=== PATIENT | female | born 1985 | race Caucasian/White ===

== ENCOUNTER 2018-02-18 09:36 | Outpatient (CLI) | payer BC ==
[~2018-02-18] VITALS: Ht 167.6 cm; Wt 134.1 kg
[2018-02-18 11:29] LABS: BASOPHILS 0.2 % (0-2); EOSINOPHILS 1.1 % (0-7); HEMOGLOBIN 10.7 g/dL (12-16); IMMATURE GRANULOCYTES 0.6 % (0-5); LYMPHOCYTES 16.5 % (15-50); MCH 22.9 pg (26.0-34.0); MCHC 31.5 g/dL (31.0-37.0); MCV 72.6 fL (80.0-100.0); MONOCYTES 4.9 % (2-11); NEUTROPHILS 76.7 % (40-80); PLATELET COUNT 230 10x3/uL (130-400); RBC 4.68 10x6/uL (4.00-5.40); RDW 19.8 % (11.5-14.5); WBC 13.1 10x3/uL (4.8-10.8)
[2018-02-18 12:06] LABS: ALBUMIN 2.5 g/dL (3.4-5.0); ALKALINE PHOSPHATASE 90 U/L (46-116); ALT (SGPT) 23 U/L (10-68); BILIRUBIN - DIRECT 0.06 mg/dL (0.00-0.30); BILIRUBIN - INDIRECT 0.07 mg/dL (0.00-1.00); BILIRUBIN - TOTAL 0.13 mg/dL (0.2-1.3); CALC OSMOLALITY 272 mosm/kg (275-300); CALCIUM 9.5 mg/dL (8.5-10.1); CARBON DIOXIDE 22.5 mmol/L (21.0-32.0); CHLORIDE - SERUM 103 mmol/L (98-107); CREATININE - SERUM 0.7 mg/dL (0.6-1.3); GLUCOSE 94 mg/dL (74-106); POTASSIUM - SERUM 4.2 mmol/L (3.5-5.1); PROTEIN - SERUM 6.9 g/dL (6.4-8.2); SODIUM 137 mmol/L (136-145); UREA NITROGEN 9 mg/dL (7-18); URIC ACID 6.6 mg/dL (2.6-7.2); eGFR NON AFRICAN AMERICAN > 90 mL/min (90-120)
[2018-02-18 14:49] VITALS: BP 117/58; Ht 167.6 cm; Wt 134.1 kg
[2018-02-18] MEDS ORDERED: IBUPROFEN600 MG PO (16:15)
[2018-02-18] MEDS ORDERED: HYDROCODON-ACE1 EAC7 PO (16:15)
[2018-02-19 06:15] LABS: RAPID PLASMA REAGIN Non Reactive (Non Reactive)
[2018-02-19 22:39] LABS: PROTEIN - URINE 12.9 mg/dL (0.0-11.9)
== END 2018-02-18 17:10 | disposition home or self-care (01) ==
LOC: D.LDO 09:36 → D.LD 13:27 → D.LDO 17:10
PROVIDERS: Obstetrics & Gynecology
DX: O26.899 Other specified pregnancy related conditions, unspecified trimester (principal); Z3A.00 Weeks of gestation of pregnancy not specified

== ENCOUNTER → 2018-02-23 10:25 | Outpatient (CLI) | payer BC ==
[2018-02-18 14:49] VITALS: BMI 47.7
[~2018-02-23 10:25] MED LIST: HYDROCODON-ACE1 EAC7 PO; IBUPROFEN600 MG PO
== END | disposition home or self-care (01) ==
LOC: D.LDO 10:25
DX: O14.93 Unspecified pre-eclampsia, third trimester (principal); Z3A.37 37 weeks gestation of pregnancy

== ENCOUNTER → 2018-02-26 13:45 | Outpatient (CLI) | payer BC ==
[2018-02-18 14:49] VITALS: BMI 47.7
[~2018-02-26 13:45] MED LIST changes: +BUSPIRONE HCL7.5 MG; +BUTALB-APAP-CA1 EACH; +CYCLOBENZAPRINE10 MG
== END | disposition home or self-care (01) ==
LOC: D.LDO 13:45
DX: O16.3 Unspecified maternal hypertension, third trimester (principal); Z3A.37 37 weeks gestation of pregnancy

== ENCOUNTER → 2018-03-02 11:07 | Outpatient (CLI) | payer BC ==
[2018-02-18 14:49] VITALS: BMI 47.7
[~2018-03-02 11:07] MED LIST changes: +IBUPROFEN800 MG PO; +PERCOCET 7.5/321 TAB PO
== END | disposition home or self-care (01) ==
LOC: D.LDO 11:07
DX: O14.93 Unspecified pre-eclampsia, third trimester (principal); Z3A.38 38 weeks gestation of pregnancy

== ENCOUNTER 2018-03-08 07:27 | Inpatient (IN) | payer BC ==
[2018-03-08] VITALS (7 sets, daily range): BP systolic 116–152; BP diastolic 69–90; Ht 167.6 cm; Wt 136.1 kg
[~2018-03-08] VITALS: Ht 167.6 cm; Wt 136.1 kg
--- NOTE | ~2018-03-08 | OP ---
PATIENT NAME: SHERMAN SPEAR MEDICAL RECORD: [id number] :83 LOCATION:[id number] ADMISSION DATE:03/08/18 SURGEON: JUAN FRANCISCO BROJAS MD DATE OF OPERATION: 03/08/2018 PREOPERATIVE DIAGNOSES: 1. at term. 2. History of section. POSTOPERATIVE DIAGNOSES: 1. Mother delivered at term. 2. History of section. PROCEDURE: Repeat low transverse section. SURGEON: Juan Francisco Borjas MD LEHR TENDER: Maxine Henry ANESTHESIOLOGIST: Vazquez Lopez MD ANESTHETIC: Spinal. FINDINGS: Viable female in vertex presentation, Apgars 9 and 9, weight 10 pounds 3 ounces. Clear fluid. Unremarkable uterus, tubes, and ovaries bilaterally. SPECIMEN REMOVED: Placenta. SPECIMEN DISPOSITION: Discarded. ESTIMATED BLOOD LOSS: 800 cc. FLUIDS: Lactated Ringer's 1400 cc. URINE OUTPUT: Clear urine 500 cc. COMPLICATION: None. DRAIN: Gorman to gravity. INDICATION: The patient is a 32-year-old multiparous female with a history of 2 prior sections. The patient desires repeat. Risks, benefits, and limitations have been described. The patient understands all risks and wishes to proceed. DESCRIPTION OF PROCEDURE: After informed consent was assured, the patient was taken to the operating room, where anesthetic was obtained without difficulty. The patient was now prepped and draped in usual sterile fashion. Assessment of the anesthetic found it to be adequate. Incision was made over the lower margin of the previous scar. This incision was carried down to the underlying layer of the fascia. It was noted that there was above normal third spacing of fluids. Preeclampsia labs had been requested as the patient had elevated blood pressure while was being worked up and underwent anesthetic. After this, the dissection was carried to the fascia. The fascia was opened in the midline and extended OPERATIVE REPORT [id number] SHERMAN SPEAR laterally. The fascia was dissected free superiorly and inferiorly. The rectus bellies were in the midline. An Raymond O self-retaining ring was inserted and tightened. Bladder flap was developed after insertion of bladder blade. The bladder blade was now reinserted into the space and a low transverse hysterotomy was performed with the delivered onto the abdomen atraumatically. The cord was doubly clamped and cut, and the was passed to the attendance. Pitocin was now administered as the placenta was delivered via Crede maneuver. Uterus was exteriorized, cleared of all clot and debris. Uterus was now closed in a running locked fashion with chromic stitch. After the close of the hysterotomy, the posterior cul-de-sac was copiously irrigated and irrigant was removed. Uterus was returned to the abdomen. Hysterotomy was inspected and found to be hemostatic. The pericolic gutters were cleared of clot and debris, and irrigated. The peritoneum and rectus bellies were approximated with loose chromic stitch in the midline. The fascia was closed with looped PDS. The subcutaneous tissue between the fascia and the skin was greater than 4 cm and the space was reapproximated with plain gut stitch. Jose Armando were applied. Sterile dressing was placed. Sponge, lap, and needle counts were correct times 2. The patient went to the recovery area in stable condition. TRANSINT:[id number] Voice Confirmation ID: [id number] DOCUMENT ID: [id number] JUAN FRANCISCO BORJAS MD at 1354 CC: [id number] DICTATION DATE: 03/08/18 1132 KNOCKER OFF: 03/08/18 1521 ADM IN [facility] [address] [place] [address]
[~2018-03-08 07:27] MED LIST changes: -BUSPIRONE HCL7.5 MG; -BUTALB-APAP-CA1 EACH; -CYCLOBENZAPRINE10 MG; -IBUPROFEN800 MG PO; -PERCOCET 7.5/321 TAB PO
[2018-03-08] MEDS ORDERED: CYCLOBENZAPRINE10 MG (08:09)
[2018-03-08] MEDS ORDERED: BUSPIRONE HCL7.5 MG (08:09)
[2018-03-08] MEDS ORDERED: BUTALB-APAP-CA1 EACH (08:10)
[2018-03-08 08:17] LABS: HEMATOCRIT 33.5 % (36.0-48.0); HEMOGLOBIN 10.5 g/dL (12-16); MCH 22.7 pg (26.0-34.0); MCHC 31.3 g/dL (31.0-37.0); MCV 72.5 fL (80.0-100.0); PLATELET COUNT 219 10x3/uL (130-400); RBC 4.62 10x6/uL (4.00-5.40); RDW 19.6 % (11.5-14.5); WBC 10.5 10x3/uL (4.8-10.8)
[2018-03-08 08:30] LABS: APPEARANCE CLOUDY (CLEAR); COLOR YELLOW (YELLOW); SPECIFIC GRAVITY 1.015 (1.005-1.020)
[2018-03-08 08:31] LABS: BILIRUBIN NEGATIVE (NEGATIVE); GLUCOSE NEGATIVE (NEGATIVE); KETONE NEGATIVE (NEGATIVE); NITRITE POSITIVE (NEGATIVE); PROTEIN 1+ mg/dL (NEGATIVE); UROBILINOGEN NORMAL (NORMAL)
[2018-03-08 08:32] LABS: EPITHELIAL CELLS 25-50 /hpf (0-5); RED CELLS - URINE 0-5 /hpf (0-5); WHITE CELLS - URINE 0-5 /hpf (0-5)
[2018-03-08 08:33] LABS: BACTERIA MODERATE /hpf (NONE SEEN)
[2018-03-08 11:27] LABS: ALBUMIN 2.5 g/dL (3.4-5.0); ALKALINE PHOSPHATASE 85 U/L (46-116); ALT (SGPT) 21 U/L (10-68); BILIRUBIN - DIRECT 0.02 mg/dL (0.00-0.30); BILIRUBIN - INDIRECT 0.13 mg/dL (0.00-1.00); BILIRUBIN - TOTAL 0.15 mg/dL (0.2-1.3); CALC OSMOLALITY 273 mosm/kg (275-300); CALCIUM 9.7 mg/dL (8.5-10.1); CARBON DIOXIDE 20.7 mmol/L (21.0-32.0); CHLORIDE - SERUM 104 mmol/L (98-107); CREATININE - SERUM 0.8 mg/dL (0.6-1.3); GLUCOSE 93 mg/dL (74-106); POTASSIUM - SERUM 4.1 mmol/L (3.5-5.1); PROTEIN - SERUM 6.3 g/dL (6.4-8.2); SODIUM 137 mmol/L (136-145); UREA NITROGEN 12 mg/dL (7-18); URIC ACID 8.8 mg/dL (2.6-7.2); eGFR NON AFRICAN AMERICAN 87 mL/min (90-120)
[2018-03-09 04:36] VITALS: BP 146/92
[2018-03-09 06:43] LABS: HEMATOCRIT 29.8 % (36.0-48.0); HEMOGLOBIN 9.1 g/dL (12-16); MCH 22.4 pg (26.0-34.0); MCHC 30.5 g/dL (31.0-37.0); MCV 73.2 fL (80.0-100.0); PLATELET COUNT 195 10x3/uL (130-400); RBC 4.07 10x6/uL (4.00-5.40); RDW 19.6 % (11.5-14.5); WBC 13.1 10x3/uL (4.8-10.8)
[2018-03-09 07:26] VITALS: BP 131/78
[2018-03-09 07:27] LABS: RAPID PLASMA REAGIN Non Reactive (Non Reactive)
[2018-03-09 12:00] VITALS: BP 114/83
[2018-03-09 16:01] VITALS: BP 130/76
[2018-03-09 20:00] VITALS: BP 127/80
[2018-03-10 00:10] VITALS: BP 133/76
[2018-03-10 08:15] VITALS: BP 146/81
[2018-03-10] MEDS ORDERED: IBUPROFEN800 MG PO (12:54)
[2018-03-10] MEDS ORDERED: PERCOCET 7.5/321 TAB PO (12:54)
== END 2018-03-10 14:35 | disposition home or self-care (01) | DRG 788 ==
LOC: D.LD 07:27 → D.WS 07:27
PROVIDERS: Obstetrics & Gynecology
PROC: 10D00Z1 Extraction of Products of Conception, Low, Open Approach (ICD-10-PCS; principal; 2018-03-08 09:00)
DX: O34.219 Maternal care for unspecified type scar from previous cesarean delivery (principal); Z3A.39 39 weeks gestation of pregnancy; Z37.0 Single live birth; O99.344 Other mental disorders complicating childbirth; F41.9 Anxiety disorder, unspecified